=== PATIENT | female | born 1945 | race Asian ===

== ENCOUNTER 2017-10-07 15:52 | Emergency (ER) | payer MEDICARE, MEDICAID ==
[~2017-10-07] VITALS: Ht 149.9 cm; Wt 45.4 kg
[2017-10-07 17:00] VITALS: BP 152/80
[2017-10-07] MEDS ORDERED: diphenhdrAMINE HCL 50 MG/1 ML VL IM ONE (17:00)
[2017-10-07] MEDS: methylPREDNISolone SOD SUCC 125 MG/2 ML VL IM ONE (17:19)
[2017-10-07] MEDS: EPINEPHrine HCL 1 MG/1 ML AMP SC ONE (17:19)
== END 2017-10-07 17:54 | disposition home or self-care (01) ==
LOC: ER 15:58
DX: L50.9 Urticaria, unspecified (principal)
CPT/HCPCS: 96372; 99284; J0171; J2930

== ENCOUNTER 2017-10-18 14:33 | Emergency (ER) | payer MEDICARE, MEDICAID ==
[~2017-10-18] VITALS: Ht 149.9 cm; Wt 43.7 kg
[2017-10-18 17:00] VITALS: BP 150/69
[2017-10-18] MEDS ORDERED: EPINEPHrine HCL 1 MG/1 ML AMP SC ONE (17:30)
[2017-10-18] MEDS ORDERED: methylPREDNISolone SOD SUCC 125 MG/2 ML VL IM ONE (17:30)
== END 2017-10-18 17:51 | disposition home or self-care (01) ==
LOC: ER 14:33
DX: T78.40XA Allergy, unspecified, initial encounter (principal); X58.XXXA Exposure to other specified factors, initial encounter
CPT/HCPCS: 96372; 99284; J0171; J2930

== ENCOUNTER 2017-11-14 17:29 | Emergency (ER) | payer MEDICARE, MEDICAID ==
[~2017-11-14] VITALS: Ht 149.9 cm; Wt 45.4 kg
[2017-11-14 17:45] VITALS: BP 135/79
== END 2017-11-14 20:00 | disposition home or self-care (01) ==
LOC: ER 18:36
DX: R21 Rash and other nonspecific skin eruption (principal); Z76.0 Encounter for issue of repeat prescription